=== PATIENT | female | born 2000 | race Caucasian/White ===

== ENCOUNTER 2023-07-21 06:21 | Emergency (ER) | payer OTHER, SELFPAY ==
[2023-07-21 06:48] VITALS: BP 126/98; PULSE 83; TEMP 36.7; O2SAT 98; BMI 34.9
--- NOTE | 2023-07-21 07:27 | ED.DENTAL1 ---
HPI - Dental/Oral General Chief complaint: Dental/Oral Stated complaint: DENTAL PAIN Time Seen by Provider: 07/21/23 07:03 Source: patient Mode of arrival: walk-in Limitations: no limitations History of Present Illness HPI Narrative: The patient presented to us with dental pain that has been going on at least for the last few weeks, he mentioned that this dental pain started after she had some dental work done few weeks ago, she thinks they did some dental filling. The patient denies any other complaints Related Data Home Medications ?Medication ?Instructions ?Recorded ?Confirmed [id number] 50 cap 07/21/23 mg-325 mg-40 mg capsule Previous Rx's ?Medication ?Instructions ?Recorded amoxicillin 875 mg-potassium 1 tab PO Q12H #20 tabs 07/21/23 clavulanate 125 mg tablet naproxen 250 mg tablet 250 mg PO BID PRN pain #20 tabs 07/21/23 Allergies Allergy/AdvReac Type Severity Reaction Status Date / Time No Known Drug Allergies Allergy Verified 07/21/23 06:52 Review of Systems ROS Status of ROS 10 or more systems reviewed and unremarkable except as noted in history and below Exam Narrative Exam Narrative: Nurses notes and vital signs reviewed and patient is not hypoxic. dental examination showed that she have good dental hygiene although at the tooth #8 and 9 just above them the patient have some tenderness and she also have tenderness upon palpation of the tooth itself General: Well-appearing and in no apparent distress. Skin: Warm, dry, no pallor noted. No rash. Head: Normocephalic, atraumatic. Neck: Supple, non-tender. Eye: Pupils are equal, round and EOMI. No scleral icterus. Ears, Nose, Mouth, and Throat: TM are clear, no nasal mucosal hypertrophy. Oral mucosa is moist, no posterior oropharynx erythema, uvula is mid-line Cardiovascular: Regular Rate and Rhythm without murmur, gallop or rub. Respiratory: No accessory muscle use or respiratory distress. Lungs are clear to auscultation, no wheezing, rales or rhonchi Chest Wall: no tenderness Back: No midline thoracic or lumbar vertebral tenderness. No CVA tenderness Musculoskeletal: normal ROM, no calf or popliteal tenderness, no lower extremity edema/swelling GI: Abdomen is soft, non-distended. Normal bowel sounds. No masses appreciated. No tenderness to palpation. No rebound, guarding, or rigidity noted. Neurological: A&O x4. No cranial nerve dysfunction observed. No truncal ataxia. Moves all extremities. Sensation intact. Psychiatric: Cooperative and interactive. Normal mood and affect. Constitutional Vital Signs, click to edit/add: Last Vital Signs Temp 98.1 F 07/21/23 06:48 Pulse 83 07/21/23 06:48 Resp 15 07/21/23 06:48 BP 126/98 H 07/21/23 06:48 Pulse Ox 98 07/21/23 06:48 O2 Del Method Room Air 07/21/23 06:48 Course Vital Signs Vital signs: Vital Signs Temperature 98.1 F 07/21/23 06:48 Pulse Rate 83 07/21/23 06:48 Respiratory Rate 15 07/21/23 06:48 Blood Pressure 126/98 H 07/21/23 06:48 Pulse Oximetry 98 07/21/23 06:48 Oxygen Delivery Method Room Air 07/21/23 06:48 Temperature 98.1 F 07/21/23 06:48 Pulse Rate 83 07/21/23 06:48 Respiratory Rate 15 07/21/23 06:48 Blood Pressure 126/98 H 07/21/23 06:48 Pulse Oximetry 98 07/21/23 06:48 Oxygen Delivery Method Room Air 07/21/23 06:48 MDM - Dental/Oral MDM Narrative Medical decision making narrative: The patient presentation is mostly secondary to dental infection causing pain The patient need to be referred to the dentist and she was started on Augmentin and naproxen The patient is to follow up with primary care physician in next 2-3 days or to return to the emergency department should any of the signs or symptoms worsen or new symptoms develop. The patient agrees with the following Diagnosis and Treatment plan and the patient will be discharged home. Discharge Plan Discharge Stand Alone Forms: Portal Instructions Chief Complaint: Dental/Oral Clinical Impression: Gingival abscess Patient Disposition: Home, Self-Care Time of Disposition Decision: 07:25 Prescriptions / Home Meds: New amoxicillin-pot clavulanate 875-125 mg tablet 1 tab PO Q12H Qty: 20 0RF naproxen 250 mg tablet 250 mg PO BID PRN (Reason: pain) Qty: 20 0RF No Action [id number] 50-325-40 mg capsule Print Language: Prydeinig Instructions: Dental Abscess (ED) Referrals: Dick Jay NP [Primary Care Provider] - 1 week
[2023-07-21] MEDS: AMOXICILLIN/POTASSIUM CLAV 1 TAB TABLET PO (07:40)
[2023-07-21] MEDS: BENZOCAINE 30 ML, lidocaine HCL 15 ML MM (07:41)
[2023-07-21] MEDS: KETOROLAC TROMETHAMINE 60 MG/2 ML VIAL IM (07:41)
[2023-07-21 07:54] VITALS: BP 127/81; PULSE 87; TEMP 37.2; O2SAT 98
== END 2023-07-21 07:54 | disposition home or self-care (01) ==
PROVIDERS: Emergency Provider Emergency Medicine; PCP Nurse Practitioner Primary Care
DX: K05.20 Aggressive periodontitis, unspecified (principal)
CPT/HCPCS: 99284